=== PATIENT | female | born 1970 | race African-American/Black ===

== ENCOUNTER 2019-10-24 16:09 | Emergency (ER) | payer OTHER ==
[~2019-10-24] VITALS: Ht 165.1 cm; Wt 90.0 kg
[~2019-10-24 16:09] MED LIST: ALBU05 NEB; FLOV44 INH; HYDR25TA MT
[2019-10-24] MEDS ORDERED: ALBUTEROL (0.083%) 2.5MG/3ML NEB HHN ONE (16:45)
[2019-10-24] MEDS ORDERED: MORPHINE SULFATE 4 MG/ML CPJ (NOT FOR IM USE) IV ONE ×2 (16:45→20:00)
[2019-10-24 16:54] LABS: HEMATOCRIT. 43.7 % (36.0-48.0); HEMOGLOBIN. 14.9 g/dL (12.0-16.0); MEAN CORPUSCULAR HEMOGLOBIN 30.3 pg (28.0-32.0); MEAN CORPUSCULAR VOLUME 89.1 fL (81.0-99.0); MEAN PLATELET VOLUME 9.2 fl (7.4-10.4); PLATELET 307 x1000/uL (130-400); RED BLOOD CELL COUNT 4.91 mill/uL (4.2-5.4); RED CELL DISTRIBUTION WIDTH 13.9 % (11.6-14.6)
[2019-10-24 18:47] LABS: PLATELET ESTIMATE NORMAL
[2019-10-24 19:05] LABS: D-DIMER 0.23 mg/L FEU (<0.50); PROTHROMBIN TIME 10.4 sec (9.6-11.0)
[2019-10-24 19:07] LABS: CHLORIDE 101 mEq/L (98-107)
[2019-10-24] MEDS ORDERED: ALBUTEROL (0.5%) 2.5MG/0.5ML NEB HHN ONE (20:00)
[2019-10-24] MEDS ORDERED: ETOMIDATE 2MG/ML 10ML VIAL IV ONE (20:43)
[2019-10-24] MEDS ORDERED: SUCCINYLCHOLINE CHLORIDE 200MG/10ML IV ONE (20:43)
[2019-10-24] MEDS ORDERED: ATROPINE SULFATE 1MG/10ML SYR ONE (20:43)
[2019-10-24] MEDS ORDERED: SODIUM CHLORIDE 0.9% 10ML VIAL ONE (20:43)
[2019-10-24] MEDS ORDERED: VECURONIUM BROMIDE 10 MG/VIAL IV ONE (20:43)
[2019-10-24] MEDS ORDERED: PROPOFOL 10MG/ML 100ML 100 ML IV ONE (21:18)
[2019-10-24 21:56] LABS: BG BASE EXCESS 1.9 mmol/L (-2.0-2.0); BG CARBOXYHEMOGLOBIN 0.7 % (0.5-1.5); BG DEOXYHEMOGLOBIN 2.4 % (0.0-5.0); BG FRACTION INSPIRED OXYGEN 100; BG HCO3 ACT 30.8 mmol/L (22.0-26.0); BG METHEMOGLOBIN 0.3 % (0.0-1.5); BG OXYGEN SATURATION 97.6 % (92.0-98.5); BG OXYHEMOGLOBIN 96.6 % (94.0-97.0); BG PCO2 66.9 mmHg (35.0-45.0); BG PH 7.281 (7.350-7.450); BG PO2 103.9 mmHg (75.0-100.0); BG SAMPLE SITE RIGHT RADIAL; BG TIDAL VOLUME(mL) 450 mL; BG TOTAL HEMOGLOBIN 15.3 g/dL (12.0-18.0); BG VENT MODE VENT - A/C; BG VENT RATE 16 set
[2019-10-25] MEDS ORDERED: FENTANYL CITRATE/PF 1,000 MCG in SODIUM CHLORIDE 0.9% 80 ML IV PRN ×2 (02:15→08:48)
[2019-10-25] MEDS: PROPOFOL 10MG/ML 100ML 100 ML IV SCH ×2 (06:04→17:10)
[2019-10-25] MEDS ORDERED: MORPHINE SULFATE 4 MG/ML CPJ (NOT FOR IM USE) IV STA (08:35)
[2019-10-25] MEDS ORDERED: ONDANSETRON HCL 4MG/2ML INJ IV STA (08:35)
[2019-10-25] MEDS ORDERED: FENTANYL CITRATE/PF 500 MCG in SODIUM CHLORIDE 0.9% 40 ML IV PRN (08:45)
[2019-10-25] MEDS ORDERED: FENTANYL CITRATE/PF 1,000 MCG in SODIUM CHLORIDE 0.9% 100 ML IV PRN (08:48)
[2019-10-25] MEDS ORDERED: OXYMETAZOLINE HCL NASAL SPRAY 15ML BOTHNSTRLS PRN (12:00)
[2019-10-25 17:14] VITALS: BP 103/77
== END 2019-10-25 17:16 | disposition short-term general hospital (02) ==
LOC: ER 16:09 → CANBEDREQ 10-25 22:00
DX: R06.03 Acute respiratory distress (principal); Z90.49 Acquired absence of other specified parts of digestive tract; Z90.710 Acquired absence of both cervix and uterus; Z79.899 Other long term (current) drug therapy; Z93.0 Tracheostomy status
CPT/HCPCS: 31500; 36415; 36600; 71045; 80053; 82375; 82805; 83605; 83880; 84484; 85025; 85379; 85610; 86850; 86900; 86901; 93005; 94640; 96365; 96366; 96368; 96375; 96376; 99291; 99292; J0330; J0461; J2270; J2405; J2704; J3010; J3490; J7050; Z7610; 94002; 94003; 96374; 99285